=== PATIENT | male | born 1990 | race Hispanic/Latino ===

== ENCOUNTER 2019-07-04 02:21 | Emergency (ER) | payer SELFPAY ==
[2019-07-04 02:21] VITALS: BP 128/86; PULSE 75; RESP 16; TEMP 37.1; O2SAT 100; BMI 25.0
[2019-07-04 02:26] VITALS: BP 128/86; PULSE 75; RESP 16; TEMP 37.1; O2SAT 100
--- NOTE | 2019-07-04 02:31 | ED.VISSUMM ---
- ER Visit Summary Date of Service: 07/04/19 Chief Complaint: Left lower last molar dental pain History of Present Illness: The patient is a [address] asthma depression. Patient states he is already seen a dentist in [place]. He has had decay of his left lower last molar. He is currently on penicillin. Said he is using Tylenol Motrin for pain without relief. He has a follow-up appointment with the same dentist in [place]. Physical Examination: Young male no acute distress vital signs are stable afebrile. H EENT exam most recent dentition is in pretty good shape. The left last lower molar is badly decayed eroded to the gumline. There is no abscess. He is able to open close his jaw. There is no trismus. Posterior pharynx normal. There is no facial swelling. Neck nontender no lymphadenopathy. Lungs clear to auscultation. Heart regular rhythm no murmur. Abdomen soft nontender. He is moving all 4 extremities. No edema. Nontender. Normal range of motion. Back nontender. Neurologically is awake and alert. Test Results: None Emergency Department Course and Treatment: Patient treated with Naprosyn for his dental pain. After I did my history and physical exam and was finished evaluate the patient he told the nurse he was suicidal. I went back in and asked the patient how you truly suicidal or are you just looking for a place to stay tonight because it is cold outside. Patient told me he was just looking for a place to stay. I told him he can stay here to morning and he will be discharged. We are happy to evaluate him for depression or suicidal ideation which he denies. Treatment Plan: Use Tylenol and Motrin for his pain. Follow-up with his dentist. Continue his current antibiotic. Disposition: Discharge Impression: Left lower jaw dental pain secondary to decayed left lower molar This note was generated with [employer] dictation software. It may contain incorrect words, spelling, and punctuation that were not noted in review of the chart prior to signing ED Disposition - Plan for ED Patient: Disposition: Home or Assisted Living Instructions: Dental Pain, Dental Cavity Additional Instructions: Follow-up with your dentist in [place], [place]. Tylenol and/or Motrin for pain.
--- NOTE | 2019-07-04 02:35 | DCINST.ED_ITS ---
ED Disposition - Plan for ED Patient: Disposition: Home or Assisted Living Instructions: Dental Pain, Dental Cavity Additional Instructions: Follow-up with your dentist in [place], [place]. Tylenol and/or Motrin for pain.
[2019-07-04] MEDS: Naproxen 500 MG Tablet PO (02:41)
[2019-07-04 03:06] VITALS: PULSE 71; RESP 16
--- NOTE | 2019-07-04 03:06 | ED.RN ---
THIS NURSE REVIEWED D/C INSTRUCTIONS WITH PT. PT VERBALIZED UNDERSTANDING OF INSTRUCTIONS. IV D/C. IV CATHETER INTACT. PT TOLERATED WELL. PT INFORMED DR GA THAT HE IS HOMELESS AND NEEDS SOME PLACE TO STAY. DR GA INFORMED THE PT HE COULD STAY HERE UNTIL MORNING.
== END 2019-07-04 03:14 | disposition home or self-care (01) ==
LOC: ED 02:42
PROVIDERS: Emergency Provider Emergency Medicine
DX: K08.89 Other specified disorders of teeth and supporting structures (principal); K02.9 Dental caries, unspecified; J45.909 Unspecified asthma, uncomplicated; F32.9 Major depressive disorder, single episode, unspecified; Z79.899 Other long term (current) drug therapy
CPT/HCPCS: 99284